=== PATIENT | female | born 1985 | race Caucasian/White ===

== ENCOUNTER 2018-06-03 11:25 | Emergency (ER) | payer OTHER ==
[~2018-06-03] VITALS: Ht 149.9 cm; Wt 74.8 kg
[2018-06-03] MEDS ORDERED: KEFLEX500 M1 PO (12:37)
[2018-06-03 12:54] VITALS: BP 118/77
== END 2018-06-03 12:55 | disposition home or self-care (01) ==
LOC: M.ERS 11:25
DX: S61.511A Laceration without foreign body of right wrist, initial encounter (principal); Z98.890 Other specified postprocedural states; W26.8XXA Contact with other sharp object(s), not elsewhere classified, initial encounter; Y93.89 Activity, other specified; Y92.89 Other specified places as the place of occurrence of the external cause; Y99.8 Other external cause status

== ENCOUNTER 2020-03-23 10:52 | Emergency (ER) | payer OTHER ==
[~2020-03-23] VITALS: Ht 152.4 cm; Wt 79.8 kg
[~2020-03-23 10:52] MED LIST: KEFLEX500 M1 PO
[2020-03-23] MEDS ORDERED: PREDNISONE50 MG PO (11:17)
[2020-03-23] MEDS ORDERED: NORCO 5-325 TA1 EAC1 PO (11:17)
[2020-03-23] MEDS ORDERED: IBUPROFEN 800800 M1 PO (11:17)
[2020-03-23] MEDS ORDERED: FLEXERIL PO (11:18)
[2020-03-23 11:21] VITALS: BP 103/84
== END 2020-03-23 11:21 | disposition home or self-care (01) ==
LOC: M.ERS 10:52
DX: S33.5XXA Sprain of ligaments of lumbar spine, initial encounter (principal); M54.2 Cervicalgia; Z98.890 Other specified postprocedural states; X50.9XXA Other and unspecified overexertion or strenuous movements or postures, initial encounter; Y93.89 Activity, other specified; Y92.89 Other specified places as the place of occurrence of the external cause; Y99.8 Other external cause status